=== PATIENT | male | born 1990 | race Caucasian/White ===

== ENCOUNTER 2020-03-04 13:24 | Emergency (ER) | payer OTHER ==
--- NOTE | 2020-03-04 16:15 | EDM.PDOC ---
ED HPI GENERAL MEDICAL PROBLEM - General Chief Complaint: Respiratory Problem Stated Complaint: CHEST PAIN SOB AND COUGH Time Seen by Provider: 03/04/20 16:00 Source of Information: Reports: Patient, RN Notes Reviewed History Limitations: Reports: No Limitations - History of Present Illness INITIAL COMMENTS - FREE TEXT/NARRATIVE: Patient is a 29-year-old male who presents to the ED for the evaluation of a possible COVID-19 infection. Patient notes that since Wednesday he has been having symptoms of COVID, to include congestion, cough, difficulty breathing, fatigue, muscle pain, and shortness of breath. He is also complaining of some mild mid central chest pain with no radiation to his arms or jaw. He does have a history of getting bronchitis, so he was using albuterol inhaler along with Tylenol for his generalized muscle aches but nothing seems to really be working much. 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 He is not been tested for coronavirus before. He denies any sort or early cardiac history in his family, and he denies any sort of cardiac issues for himself. Chest Pain Score (Numeric/FACES): 8 - Related Data Allergies Allergy/AdvReac Type Severity Reaction Status Date / Time No Known Allergies Allergy Verified 03/04/20 14:05 Home Meds: Home Meds . [No Known Home Meds] 03/04/20 [History] Past Medical History - Past Health History Medical/Surgical History: Denies Medical/Surgical History Social & Family History - Tobacco Use Smoking Status *Q: Never Smoker - Caffeine Use Caffeine Use: Reports: Coffee, Energy Drinks, Soda, Tea - Recreational Drug Use Recreational Drug Use: No ED ROS GENERAL - Review of Systems Review Of Systems: Comprehensive ROS is negative, except as noted in HPI. ED EXAM, GENERAL - Physical Exam Exam: See Below Exam Limited By: No Limitations General Appearance: Alert, WD/WN, No Apparent Distress Eye Exam: Bilateral Eye: Normal Inspection Respiratory/Chest: No Respiratory Distress, Lungs Clear, Normal Breath Sounds, No Accessory Muscle Use, Chest Non-Tender Cardiovascular: Normal Peripheral Pulses, Regular Rate, Rhythm, No Murmur Peripheral Pulses: 2+: Radial (L), Radial (R) Extremities: Normal Inspection, Normal Capillary Refill Neurological: Alert, Oriented, Normal Cognition, No Motor/Sensory Deficits Psychiatric: Normal Affect, Normal Mood Skin Exam: Warm, Dry, Intact, Normal Color, No Rash EKG INTERPRETATION EKG Date: 03/04/20 Time: 16:41 Rhythm: NSR Rate (Beats/Min): 86 Tie Siding: Normal P-Wave: Present QRS: Normal ST-T: Normal QT: Normal Comparison: NA - No Prior EKG EKG Interpretation Comments: No obvious ischemia or acute ST changes noted, reviewed by myself and Dr. Mcdaniels. Course - Vital Signs Last Recorded V/S: Last Vital Signs Temp 99.1 F 03/04/20 14:08 Pulse 92 03/04/20 14:08 Resp 20 03/04/20 14:08 BP 122/84 03/04/20 14:08 Pulse Ox 97 03/04/20 14:08 - Orders/Labs/Meds Orders: Active Orders 24 hr Category Date Time Status EKG Documentation Completion [RC] STAT Care 03/04/20 16:10 Ordered Chest 1V Frontal [CR] Stat Exams 03/04/20 16:11 Ordered CORONAVIRUS COVID-19 PCR PHL Stat Lab 03/04/20 16:10 Ordered Labs: Laboratory Tests 03/04/20 03/04/20 03/04/20 Range/Units 16:45 16:45 16:45 WBC 3.62 L (4.23-9.07) K/mm3 RBC 5.36 (4.63-6.08) M/mm3 Hgb 15.8 (13.7-17.5) gm/dl Hct 46.0 (40.1-51.0) % MCV 85.8 (79.0-92.2) fl MCH 29.5 (25.7-32.2) pg MCHC 34.3 (32.2-35.5) g/dl RDW Std Deviation 39.7 (35.1-43.9) fL Plt Count 175 (163-337) K/mm3 MPV 10.0 (9.4-12.3) fl Neut % (Auto) 51.3 (34.0-67.9) % Lymph % (Auto) 30.7 (21.8-53.1) % [place] % (Auto) 17.4 H (5.3-12.2) % Eos % (Auto) 0 L (0.8-7.0) Baso % (Auto) 0.6 (0.1-1.2) % Neut # (Auto) 1.86 (1.78-5.38) K/mm3 Lymph # (Auto) 1.11 L (1.32-3.57) K/mm3 [place] # (Auto) 0.63 (0.30-0.82) K/mm3 Eos # (Auto) 0.00 L (0.04-0.54) K/mm3 Baso # (Auto) 0.02 (0.01-0.08) K/mm3 Manual Slide Review Abnormal smear Sodium 142 (136-145) mEq/L Potassium 4.1 (3.5-5.1) mEq/L Chloride 103 (98-107) mEq/L Carbon Dioxide 28 (21-32) mEq/L Anion Gap 15.1 H (5-15) BUN 14 (7-18) mg/dL Creatinine 0.9 (0.7-1.3) mg/dL Est Cr Clr Drug Dosing 106.82 mL/min Estimated GFR (MDRD) > 60 (>60) mL/min BUN/Creatinine Ratio 15.6 (14-18) Glucose 69 L (74-106) mg/dL Calcium 9.6 (8.5-10.1) mg/dL Ferritin 456 H (26-388) ng/ml Total Bilirubin 0.5 (0.2-1.0) mg/dL AST 23 (15-37) U/L ALT 30 (16-63) U/L Alkaline Phosphatase 84 (46-116) U/L Troponin I < 0.017 (0.00-0.056) ng/mL C-Reactive Protein 1.3 H* (<1.0) mg/dL Total Protein 7.7 (6.4-8.2) g/dl Albumin 4.1 (3.4-5.0) g/dl Globulin 3.6 gm/dL Albumin/Globulin Ratio 1.1 (1-2) - Re-Assessments/Exams Free Text/Narrative Re-Assessment/Exam: 03/04/20 16:14 Patient presents to the ED for the evaluation of his COVID-like symptoms. Chest x-ray, EKG, troponin, CRP, ferritin, CBC and CMP will be obtained for initial lab values. 03/04/20 16:53 Chest x-ray demonstrates no acute consolidations or abnormalities at today's visit. 03/04/20 18:02 EKG is within normal limits, demonstrates no focal abnormalities, labs are also fairly unremarkable. CRP is mildly elevated at 1.3, troponin is negative, white blood cell count mildly low at 3.62. He very well could have COVID-19 at this time due to the slight irregularities in labs. He will be discharged home to quarantine and we will follow-up with COVID results as we get those made known to us. 03/04/20 18:12 Patient's ferritin is elevated at 456. Departure - Departure Time of Disposition: 18:03 Disposition: Home, Self-Care 01 Condition: Good Clinical Impression: Suspected COVID-19 virus infection - Discharge Information *PRESCRIPTION DRUG MONITORING PROGRAM REVIEWED*: No *COPY OF PRESCRIPTION DRUG MONITORING REPORT IN PATIENT OXANA: No Instructions: COVID-19: How to Protect Yourself and Others - CDC, Prevent the Spread of COVID-19 if You Are Sick - [facility] Referrals: PCP,None [Primary Care Provider] - Forms: ED Department Discharge, ED Return to Work/School Form Additional Instructions: You were seen in the ER today for ongoing and/or worsening respiratory symptoms. Your chest x-ray showed no signs of pneumonia at this time. Your oxygen levels were great at 98% on room air. At this time we did test you for COVID-19. We ask that you self-quarantine and limit your exposure to others until you receive your results from the state. You have been given a work note to reflect this. Swabs are sent from this facility on a daily basis, at 2:30 PM, you should expect up to 3-5 business days for positive or negative results. However you may receive results earlier than this. We are doing our best to call as soon as we get results from the [place] dept. of Health. Please try to increase your oral fluid intake, and eat multiple small meals throughout the day, to keep yourself healthy. You need to keep yourself nourished in order to fight off this disease. You can try a liquid diet like gatorade/powerade as well to get your electrolytes. You may take 500 mg Tylenol every hours 6 hours for pain/fever relief. Do not exceed 4000 mg Tylenol in a 24-hour time span. However, running a fever is your body's natural response to illness, and it allows the body to develop antibodies to disease, we are recommending trying to limit the use of Tylenol as much as possible to allow your body's natural immune response. Recommend you obtain a pulse oximeter and monitor your oxygen levels at home, you should place the monitor on your finger, and sit in a calm, quiet position for a few minutes and then record the number that is on the screen. If this consistently below 90% on room air without movement, this would be cause for concern to come back to the hospital for further management of your COVID-19 disease. Sepsis Event Note (ED) - Evaluation Sepsis Screening Result: No Definite Risk - Focused Exam Vital Signs: Vital Signs Temp Pulse Resp BP Pulse Ox 03/04/20 14:08 99.1 F 92 20 122/84 97 - My Orders Last 24 Hours: My Active Orders 03/04/20 16:10 EKG Documentation Completion [RC] STAT CORONAVIRUS COVID-19 PCR PHL Stat 03/04/20 16:11 Chest 1V Frontal [CR] Stat - Assessment/Plan Last 24 Hours: My Active Orders 03/04/20 16:10 EKG Documentation Completion [RC] STAT CORONAVIRUS COVID-19 PCR PHL Stat 03/04/20 16:11 Chest 1V Frontal [CR] Stat
--- NOTE | 2020-04-05 13:16 | CR ---
PROCEDURE INFORMATION: Exam: XR Chest, 1 View Exam date and time: 03/04/2020 3:59 PM Age: 29 years old Clinical indication: Other: Suspect covid TECHNIQUE: Imaging protocol: XR of the chest Views: 1 view. COMPARISON: No relevant prior studies available. FINDINGS: Lungs: Unremarkable. No consolidation. Pleural space: Unremarkable. No pleural effusion. No pneumothorax. Heart/Mediastinum: Unremarkable. No cardiomegaly. Bones/joints: Unremarkable. IMPRESSION: No acute findings. Thank you for allowing us to participate in the care of your patient. Dictated and Authenticated by: Marco A Crowe MD 04/05/2020 1:10 PM Central Time ([place] & [place]) [facility]
== END 2020-03-04 18:46 | disposition home or self-care (01) ==
LOC: JD.ED 13:24
DX: R07.9 Chest pain, unspecified (principal); R06.02 Shortness of breath; R05 Cough; R53.83 Other fatigue; M79.10 Myalgia, unspecified site; R79.82 Elevated C-reactive protein (CRP); Z20.828 Contact with and (suspected) exposure to other viral communicable diseases
CPT/HCPCS: 36415; 71045; 71045-26; 80053; 82728; 84484; 85025; 86140; 93005; 93010; 99283; 99285-25; U0002

== ENCOUNTER 2023-01-07 20:40 | Emergency (ER) | payer BC, OTHER ==
[2023-01-07] MEDS ORDERED: Ketorolac 60 MG/2 ML SDV IM ONE (21:16)
== END 2023-01-07 22:05 | disposition home or self-care (01) ==
LOC: JD.ED 20:40
DX: S43.005A Unspecified dislocation of left shoulder joint, initial encounter (principal); W18.30XA Fall on same level, unspecified, initial encounter
CPT/HCPCS: 23650; 73030; 96372; 99283; J1885; 99282